=== PATIENT | male | born 1980 | race Asian ===

== ENCOUNTER 2016-10-09 05:21 | Emergency (ER) | payer BC ==
[~2016-10-09] VITALS: Ht 193 cm; Wt 170.1 kg
[~2016-10-09 05:21] MED LIST: LISI20TA31 PO; METO100T37 PO
[2016-10-09 05:36] VITALS: TEMP 98.9
[2016-10-09 06:23] LABS: PLATELET COUNT 218 K/uL (142-355)
[2016-10-09 06:32] LABS: SODIUM 135 mmol/L (136-145)
[2016-10-09 08:30] VITALS: BP 184/119
== END 2016-10-09 08:44 | disposition home or self-care (01) ==
LOC: ED 05:21
DX: I10 Essential (primary) hypertension (principal)
CPT/HCPCS: 80053; 83880; 85027; 93005; 94664; 94760; 96374; 99284; J3490

== ENCOUNTER 2019-09-13 12:42 | Emergency (ER) | payer OTHER ==
[~2019-09-13] VITALS: Ht 193 cm; Wt 156.5 kg
[2019-09-13 13:00] VITALS: TEMP 97.7
[2019-09-13 14:34] LABS: PLATELET COUNT 189 K/uL (142-355)
[2019-09-13 14:41] LABS: POTASSIUM 3.7 mmol/L (3.6-5.2)
[2019-09-13 16:24] VITALS: BP 152/99
== END 2019-09-13 16:27 | disposition home or self-care (01) ==
LOC: ED 12:42
PROVIDERS: Family Medicine
PROC: 2W3QX1Z Immobilization of Right Lower Leg using Splint (ICD-10-PCS; principal; 2019-09-13)
DX: S93.401A Sprain of unspecified ligament of right ankle, initial encounter (principal); I10 Essential (primary) hypertension; X50.9XXA Other and unspecified overexertion or strenuous movements or postures, initial encounter
CPT/HCPCS: 80053; 84550; 85027; 99283

== ENCOUNTER 2023-03-16 17:56 | Emergency (ER) | payer OTHER ==
[~2023-03-16] VITALS: Ht 193 cm; Wt 156.5 kg
[2023-03-16 18:00] VITALS: TEMP 97.6
[2023-03-16 18:49] LABS: PLATELET COUNT 168 K/uL (142-355)
[2023-03-16 18:59] LABS: POTASSIUM 4.8 mmol/L (3.6-5.2)
[2023-03-16 22:15] VITALS: BP 150/90
== END 2023-03-16 22:15 | disposition short-term general hospital (02) ==
LOC: ED 17:56
PROVIDERS: Family Medicine
DX: E11.9 Type 2 diabetes mellitus without complications (principal); K59.00 Constipation, unspecified
CPT/HCPCS: 36415; 80053; 81002; 83036; 83690; 85027; 87502; 87635; 96361; 96365; 96375; 99285; J1815; U0003

== ENCOUNTER 2023-04-16 14:42 | Emergency (ER) | payer OTHER ==
[~2023-04-16] VITALS: Ht 193 cm; Wt 142.9 kg
[2023-04-16 14:50] VITALS: BP 154/111; TEMP 98.7
== END 2023-04-16 15:49 | disposition home or self-care (01) ==
LOC: ED 14:42
DX: S60.012A Contusion of left thumb without damage to nail, initial encounter (principal); S63.602A Unspecified sprain of left thumb, initial encounter; X58.XXXA Exposure to other specified factors, initial encounter
CPT/HCPCS: 99283